=== PATIENT | female | born 2000 | race Two or more races ===

== ENCOUNTER 2020-01-04 08:04 | Outpatient (CLI) | payer BC ==
[2020-01-04 18:04] LABS: BHCG - Serum Negative (NEGATIVE)
[2020-01-04 18:05] LABS: Pregs Control Background? CLEAR/WHITE (CLR/WHITE); Pregs Control Bar Appear? YES (CONTROL BAR)
[2020-01-05 09:25] LABS: SARS-CoV-2 MS2 Positive; SARS-CoV-2 N Gene Negative; SARS-CoV-2 S Gene Negative; SARS-CoV-2 by NAA Not Detected (NotDetected); SARS-CoV-2 orf1ab Negative
== END 2020-01-04 08:05 | disposition home or self-care (01) ==
LOC: LABBT 08:04
PROVIDERS: ATTEND Specialist
DX: Z01.812 Encounter for preprocedural laboratory examination (principal); J30.9 Allergic rhinitis, unspecified; J03.90 Acute tonsillitis, unspecified; J35.8 Other chronic diseases of tonsils and adenoids; J34.3 Hypertrophy of nasal turbinates; Z20.828 Contact with and (suspected) exposure to other viral communicable diseases
CPT/HCPCS: 84703; 85014; 87635; U0003

== ENCOUNTER 2020-01-07 07:31 | Day surgery (SDC) | payer BC ==
[2020-01-06 15:04] VITALS: BMI 29.7
[2020-01-07] MEDS ORDERED: Fentanyl 250 MCG/5 ML VIAL ONE (07:48)
[2020-01-07] MEDS ORDERED: Midazolam HCl 2 mg/2 ml Vial ONE (08:06)
[2020-01-07] MEDS ORDERED: Acetaminophen 500 MG TAB ONE (08:07)
[2020-01-07] MEDS ORDERED: Scopolamine 1.5 mg/72 hour Patch ONE (08:07)
[2020-01-07] MEDS ORDERED: Ondansetron PF 4 MG/2 ML Vial ONE (09:15)
[2020-01-07] MEDS ORDERED: PHENYLEPHRINE-NS 100 MCG/ML 10 ML SYRINGE ONE (09:15)
[2020-01-07] MEDS ORDERED: PROPOFOL 200 MG/20 ML VIAL ONE (09:15)
[2020-01-07] MEDS ORDERED: Lidocaine 1% PF 5 ML VIAL ONE (09:15)
[2020-01-07] MEDS ORDERED: ePHEDrine 50 MG/ML VIAL ONE (09:15)
[2020-01-07] MEDS ORDERED: Dexamethasone 20 MG/5 ML VIAL ONE (09:15)
[2020-01-07] MEDS ORDERED: Ferric Subsulfate (ASTRINGYN) 8 GM VIAL ONE (09:48)
[2020-01-07] MEDS ORDERED: Fentanyl 100 MCG/2 ML VIAL ONE ×2 (10:11→10:43)
[2020-01-07] MEDS ORDERED: Hydrocodone-Acetamin 15 ML UDCUP ONE (11:49)
--- NOTE | 2020-01-08 10:08 | OP ---
DATE OF PROCEDURE: 01/07/2020 PREOPERATIVE DIAGNOSES: 1. Chronic tonsillitis. 2. Recurrent tonsillitis. POSTOPERATIVE DIAGNOSES: 1. Chronic tonsillitis. 2. Recurrent tonsillitis. PROCEDURE PERFORMED: Tonsillectomy over 12 years of age. DESCRIPTION OF PROCEDURE: After consent was obtained, the patient was identified, brought to the operating room, and placed on the operating table in the supine position. General endotracheal anesthesia and intravenous access was obtained and we proceeded with positioning the patient for oropharyngeal surgery. Oropharyngeal exposure was obtained with a Ed-Vick mouth gag after a head drape was placed and secured with a towel clip. The Ed-Vick mouth gag was then suspended from the Balbuena tray and palatal elevation was achieved with a red rubber catheter. The right tonsil was addressed first. We used a curved Allis to grasp the tonsil and retract it medially as an anterior pillar incision was made with a #12 blade. The retrotonsillar fascial plane was then established and blunt dissection was performed with the suction cautery. Blood vessels were anticipated, identified, and cauterized as they were encountered. Ultimately, dissection was carried to the posterior tonsillar pillar mucosa which was incised hemostatically, as well as the base of tongue connection. The tonsil was then passed off as a specimen and bleeding points within the tonsillar bed were cauterized under direct visualization. We subsequently turned our attention to the contralateral side, where using a similar technique, a near identical procedure was performed. Again, the tonsil was grasped and retracted medially with a curved Allis as an anterior pillar incision was made with a #12 blade. The retrotonsillar fascial plane was established and while the anterior pillar was retracted medially, the hemostatic blunt dissection of the tonsil with a suction cautery was performed with blood vessels anticipated, identified, and cauterized as they were encountered. Again, dissection continued to the base of tongue and posterior tonsillar pillar mucosa which was incised in a hemostatic fashion. The tonsillar beds were then carefully inspected and bleeding points were identified and cauterized with a suction cautery. After this portion of the procedure, hemostasis was completely obtained. The patient's oral cavity was copiously irrigated with iced saline and subsequently suctioned. We then used the red rubber catheter to suction the gastric contents and the patient was subsequently aroused, awakened, and extubated without difficulty and transported to the recovery room in stable condition. There were no complications. FINDINGS: This specimen was sent for both culture and histologic evaluation. Job ID: [id number]
[2020-01-11 13:13] LABS: Fungus Stain Final report (.)
[2020-01-11 13:13] LABS: Fungus Stain Final report (.); Fungus Stain Result 1 Yeast observed (.)
== END 2020-01-07 12:40 | disposition home or self-care (01) ==
LOC: SDC 07:31
PROVIDERS: ATTEND Specialist
PROC: 0CTPXZZ Resection of Tonsils, External Approach (ICD-10-PCS; principal; 2020-01-07)
DX: J03.91 Acute recurrent tonsillitis, unspecified (principal); J35.01 Chronic tonsillitis; J35.8 Other chronic diseases of tonsils and adenoids; J34.3 Hypertrophy of nasal turbinates; J30.9 Allergic rhinitis, unspecified; Z88.1 Allergy status to other antibiotic agents; Z91.041 Radiographic dye allergy status
CPT/HCPCS: 87070; 87077; 87102; 87186; 87205; 87206; J1100; J2250; J2405; J2704; J3010; J3490

== ENCOUNTER 2020-04-26 17:59 | Emergency (ER) | payer BC ==
[2020-04-26] MEDS ORDERED: diphenhydrAMINE 50 MG/ML VIAL ONE (20:44)
[2020-04-26] MEDS ORDERED: Ketorolac Tromethamine 30 MG/ML VIAL ONE (20:44)
[2020-04-26] MEDS ORDERED: Metoclopramide HCl 10 MG/2 ML VIAL ONE (20:44)
[2020-04-26] MEDS ORDERED: Acetaminophen 500 MG TAB ONE (20:44)
[2020-04-26] MEDS ORDERED: methylPREDNISolone Sod Succ/PF 125 MG/2 ML VIAL ONE (20:44)
== END 2020-04-26 22:55 | disposition home or self-care (01) ==
LOC: ERS 17:59
DX: G93.2 Benign intracranial hypertension (principal); R51.9 Headache, unspecified; I10 Essential (primary) hypertension; Z79.899 Other long term (current) drug therapy
CPT/HCPCS: 96374; 96375; J1200; J1885; J2765; J2930

== ENCOUNTER 2020-04-29 00:47 | Emergency (ER) | payer BC ==
[2020-04-29] MEDS ORDERED: Ketorolac Tromethamine 30 MG/ML VIAL ONE (01:53)
[2020-04-29] MEDS ORDERED: Metoclopramide HCl 10 MG/2 ML VIAL ONE (01:53)
[2020-04-29] MEDS ORDERED: diphenhydrAMINE 50 MG/ML VIAL ONE (01:53)
[2020-04-29] MEDS ORDERED: Metoclopramide 10 MG/10 ML UDCUP ONE (01:53)
== END 2020-04-29 03:49 | disposition home or self-care (01) ==
LOC: ERS 00:47
DX: G93.2 Benign intracranial hypertension (principal); H66.91 Otitis media, unspecified, right ear
CPT/HCPCS: 62270; 96374; 96375; J1200; J1885; J2765

== ENCOUNTER 2020-12-18 15:38 | Emergency (ER) | payer BC ==
[2020-12-18 16:48] LABS: #Basophils 0.2 thou/uL (0.0-0.2); #Eosinphils 0.1 thou/uL (0.0-0.7); #Lymphocytes 3.9 thou/uL (1.20-3.40); #Monocytes 0.7 thou/uL (0.11-0.59); #Neutrophils 6.3 thou/uL (1.40-6.50); %Basophils 1.3 % (0.0-1.0); %Eosinophils 0.6 % (0.0-10.0); %Lymphocytes 35.1 % (21.0-51.0); %Monocytes 6.6 % (0.0-10.0); %Neutrophils 56.4 % (42.0-75.0); Hemoglobin 15.1 g/dL (12.0-16.0); Mean Corpuscular HGB CONC 35.4 g/dL (32.0-36.0); Mean Corpuscular Hemoglobin 30.9 pg (27.0-31.0); Mean Corpuscular Volume 87.4 fL (78.0-98.0); Mean Platelet Volume 8.8 fL (7.4-10.4); Platelet Count 198 thou/uL (130-400); RBC Distribution Width 12.1 % (11.5-14.5); Red Blood Cell (RBC) Count 4.87 mill/uL (4.20-5.40); White Blood Cell (WBC) Count 11.2 thou/uL (4.8-10.8)
[2020-12-18 17:12] LABS: ALT (SGPT) 12 U/L (8-55); AST (SGOT) 16 U/L (5-34); Albumin 4.6 g/dL (3.5-5.0); Alkaline Phosphatase 50 U/L (40-110); Anion Gap 15 mmol/L (10-20); BUN (Urea Nitrogen) 15 mg/dL (7.0-18.7); Bilirubin, Total 0.5 mg/dL (0.2-1.2); Calc. Creatinine Clearance 0 mL/min (70-130); Calcium 10.1 mg/dL (7.8-10.44); Carbon Dioxide 18 mmol/L (22-29); Chloride 110 mmol/L (98-107); Glucose 85 mg/dL (70-105); Potassium 3.9 mmol/L (3.5-5.1); Protein, Total 7.6 g/dL (6.0-8.3); Sodium 139 mmol/L (136-145)
[2020-12-18] MEDS ORDERED: Morphine 4 MG/ML VIAL ONE (17:28)
[2020-12-18] MEDS ORDERED: Lidocaine 1% w/Epinephrine 1:100K 20 ML VIAL ONE (17:51)
[2020-12-18] MEDS ORDERED: Lidocaine 1% PF 5 ML VIAL ONE (17:53)
== END 2020-12-18 18:30 | disposition home or self-care (01) ==
LOC: ERS 15:38
DX: L02.415 Cutaneous abscess of right lower limb (principal); L03.115 Cellulitis of right lower limb; G43.909 Migraine, unspecified, not intractable, without status migrainosus
CPT/HCPCS: 10060; 36415; 80053; 85025; 87070; 87077; 87186; 87205; 96374; J2270

== ENCOUNTER 2020-12-20 16:07 | Emergency (ER) | payer BC ==
[2020-12-20] MEDS ORDERED: Lidocaine 1% (PF) 30 ML VIAL ONE (17:18)
== END 2020-12-20 19:05 | disposition home or self-care (01) ==
LOC: ERS 16:07
DX: L02.415 Cutaneous abscess of right lower limb (principal); L03.115 Cellulitis of right lower limb; G43.909 Migraine, unspecified, not intractable, without status migrainosus
CPT/HCPCS: 99282; J2001